=== PATIENT | female | born 2000 | race Caucasian/White ===

== ENCOUNTER 2021-12-10 13:56 | Emergency (ER) | payer OTHER ==
[~2021-12-10] VITALS: Ht 165.1 cm; Wt 59.0 kg
[2021-12-10] MEDS ORDERED: OSEL75CA PO (17:01)
[2021-12-10] MEDS ORDERED: ACETAMINOPHEN-CO5 ML PO (17:01)
[2021-12-10] MEDS ORDERED: ZITHROMAX200 MG PO (17:01)
== END 2021-12-10 17:26 | disposition home or self-care (01) ==
LOC: ER 13:56
DX: J15.7 Pneumonia due to Mycoplasma pneumoniae (principal); Z20.822 Contact with and (suspected) exposure to COVID-19